=== PATIENT | female | born 2000 | race Caucasian/White ===

== ENCOUNTER 2025-03-09 21:36 | Emergency (ER) | payer OTHER, SELFPAY ==
[2025-03-09 21:47] VITALS: BP 115/68
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
== END 2025-03-09 22:58 | disposition home or self-care (01) ==
LOC: EMR 21:36
PROVIDERS: EMERGENCY PHYSICIAN Emergency Medicine; FAMILY PHYSICIAN Family Medicine
DX: H92.02 Otalgia, left ear (principal); R42 Dizziness and giddiness; H61.22 Impacted cerumen, left ear
CPT/HCPCS: 99282; 69210